=== PATIENT | male | born 1975 | race Caucasian/White ===

== ENCOUNTER 2021-09-16 00:42 | Emergency (ER) | payer MEDICAID ==
[~2021-09-16] VITALS: Ht 177.8 cm; Wt 80.9 kg
[2021-09-16 00:49] VITALS: BP 158/104
[2021-09-16] MEDS ORDERED: TETanus/Pertussis (Acell)/Diphther VAC/PF (Tdap-Adult) 0.5ml syringe IMVAC ONE (01:00)
[2021-09-16] MEDS ORDERED: DOXYCYCLINE 100MG CAPSULE PO STA (01:16)
[2021-09-16] MEDS ORDERED: LIDOcaine 1% W/epiNEPHrine 1:200,000 10ml vial IJ ONE (01:20)
[2021-09-16] MEDS ORDERED: LIDOcaine 1% W/epiNEPHrine 1:100,000 20ml vial IJ ONE ×2 (01:30→01:50)
[2021-09-16] MEDS ORDERED: AMOX-117 PO (03:31)
== END 2021-09-16 03:51 | disposition home or self-care (01) ==
LOC: ER 00:43
DX: S01.511A Laceration without foreign body of lip, initial encounter (principal); S01.412A Laceration without foreign body of left cheek and temporomandibular area, initial encounter; S01.112A Laceration without foreign body of left eyelid and periocular area, initial encounter; W22.8XXA Striking against or struck by other objects, initial encounter; Y93.01 Activity, walking, marching and hiking; Y92.099 Unspecified place in other non-institutional residence as the place of occurrence of the external cause; Y99.8 Other external cause status
CPT/HCPCS: 12014; 90471; 90715; 99284